=== PATIENT | female | born 1995 | race Caucasian/White ===

== ENCOUNTER 2017-08-28 19:18 | Emergency (ER) | payer MEDICAID ==
[~2017-08-28] VITALS: Ht 165.1 cm; Wt 81.7 kg
[2017-08-28 19:27] VITALS: Ht 165.1 cm; Wt 81.7 kg
[2017-08-28 21:38] LABS: BASOPHIL % 0.7 % (0-2); PLATELET COUNT 374 x10^3mcL (130-400); RED CELL DISTRIBUTION WIDTH 13.1 % (11.5-14.5)
[2017-08-28 21:40] LABS: microscopic required? YES; urine erythrocyte 1+ (NEGATIVE)
[2017-08-28 21:53] LABS: CALCIUM 9.1 mg/dL (8.5-10.1); CARBON DIOXIDE 26.5 mmol/L (21-32); CHLORIDE SERUM 107 mmol/L (98-107); CREATININE SERUM 0.9 mg/dL (0.6-1.0); GFR1 > 60 mL/min; GLUCOSE SERUM 88 mg/dL (74-106); POTASSIUM SERUM 4.2 mmol/L (3.5-5.1); SODIUM SERUM 141 mmol/L (136-145)
[2017-08-28 21:59] LABS: ALBUMIN 3.9 g/dL (3.4-5.0); ALKALINE PHOSPHATASE 65 U/L (46-116); ALT/SGPT 160 U/L (14-59); AST/SGOT 98 U/L (15-37); BILIRUBIN TOTAL 0.34 mg/dL (0.20-1.00); TOTAL PROTEIN, SERUM 7.5 g/dL (6.4-8.2)
[2017-08-28 22:43] VITALS: BP 112/75
== END 2017-08-28 22:43 | disposition home or self-care (01) ==
LOC: ED 19:18
PROVIDERS: Emergency Medicine
DX: R42 Dizziness and giddiness (principal); J18.1 Lobar pneumonia, unspecified organism; J32.9 Chronic sinusitis, unspecified; R51 Headache
CPT/HCPCS: J7030; J7512; J8597